=== PATIENT | female | born 1970 | race Caucasian/White ===

== ENCOUNTER 2018-02-22 10:17 | Emergency (ER) | payer OTHER ==
[~2018-02-22] VITALS: Ht 154.9 cm; Wt 63.5 kg
[~2018-02-22 10:17] MED LIST: CYCL10 PO; HYDACE5 PO; METPHE20 PO; PRED20 PO; TRAM50 PO
[2018-02-22] MEDS ORDERED: Zestril40 MG PO (10:35)
[2018-02-22 11:07] LABS: BASOPHILS ABSOLUTE AUTO 0.03 K/mm3 (0.00-0.23); BASOPHILS PERCENT AUTO 0 % (0-2); EOSINOPHILS ABSOLUTE AUTO 0.11 K/mm3 (0.00-0.68); EOSINOPHILS PERCENT AUTO 1 % (0-6); Hematocrit 44.4 % (33.0-51.0); Hemoglobin 15.2 g/dL (11.5-16.0); IMMATURE GRAN ABSOLUTE AUTO 0.04 K/mm3 (0.00-0.10); IMMATURE GRAN PERCENT AUTO 0 % (0-1); LYMPHOCYTES PERCENT AUTO 20 % (21-46); MONOCYTES ABSOLUTE AUTO 0.61 K/mm3 (0.16-1.47); MONOCYTES PERCENT AUTO 7 % (4-13); Mean Corpuscular HGB Conc 34.2 g/dL (31.5-36.5); Mean Corpuscular Volume 91 fL (80-100); Mean Platelet Volume 9.6 fL (9.1-12.4); NEUTROPHILS ABSOLUTE AUTO 6.62 K/mm3 (1.96-9.15); NEUTROPHILS PERCENT AUTO 72 % (41-73); Platelet Count 311 K/mm3 (150-400); RDW Coefficient Variation 12.3 % (11.7-14.2); RDW Standard Deviation 40.6 fL (35.1-46.3); White Blood Cell Count 9.21 K/mm3 (4.00-11.30)
[2018-02-22 11:22] LABS: Alanine Aminotransfer (ALT/SGP 28 U/L (12-78); Albumin, Blood 3.9 g/dL (3.4-5.0); Alk Phos 75 U/L (50-136); Anion Gap 8 mmol/L (6-16); Aspartate Aminotrans (AST/SGOT 25 U/L (12-37); Bilirubin, Total 0.5 mg/dL (0.1-1.0); Blood Urea Nitrogen 20 mg/dL (8-24); Bun/Creatinine Ratio 26.4 (12.0-20.0); CO2, Blood 22 mmol/L (21-32); Calcium, Blood 8.7 mg/dL (8.5-10.1); Chloride, Blood 108 mmol/L (98-108); Creatinine, Blood 0.76 mg/dL (0.40-1.00); Globulin, Blood 3.8 g/dL (2.2-4.0); Glomerular Filtration Rate >60 (60-); Glucose, Blood 101 mg/dL (70-99); Potassium, Blood 4.3 mmol/L (3.5-5.5); Sodium, Blood 138 mmol/L (136-145); Total Protein, Blood 7.7 g/dL (6.4-8.2)
[2018-02-22] MEDS ORDERED: PROM25 PO (12:09)
[2018-02-22] MEDS ORDERED: Bentyl20 MG PO (12:09)
== END 2018-02-22 12:45 | disposition home or self-care (01) ==
LOC: ER 10:17
PROVIDERS: Emergency Medicine
DX: R10.11 Right upper quadrant pain (principal); I10 Essential (primary) hypertension; F17.210 Nicotine dependence, cigarettes, uncomplicated; Z88.5 Allergy status to narcotic agent; Z79.899 Other long term (current) drug therapy
CPT/HCPCS: 36415; 76705; 80053; 81000; 81025; 83690; 85025; 96374; 99284; J2405; J7120

== ENCOUNTER 2019-11-06 20:22 | Emergency (ER) | payer OTHER ==
[~2019-11-06] VITALS: Ht 152.4 cm; Wt 62.6 kg
[~2019-11-06 20:22] MED LIST changes: +Bentyl20 MG PO; +PROM25 PO; +Zestril40 MG PO
[2019-11-06] MEDS ORDERED: ZYRTEC10 M2 PO (20:59)
[2019-11-06] MEDS ORDERED: HYDHCL25 (20:59)
[2019-11-06] MEDS ORDERED: Hydrochloroth12.5 MG PO (21:00)
[2019-11-06] MEDS ORDERED: CRUTCH2 XX (21:00)
== END 2019-11-06 21:09 | disposition home or self-care (01) ==
LOC: ER 20:22
DX: S83.412A Sprain of medial collateral ligament of left knee, initial encounter (principal); I10 Essential (primary) hypertension; F17.210 Nicotine dependence, cigarettes, uncomplicated; Z88.5 Allergy status to narcotic agent; Z79.899 Other long term (current) drug therapy; W17.89XA Other fall from one level to another, initial encounter
CPT/HCPCS: 29505; 99282-25; A9270

== ENCOUNTER 2021-09-16 01:02 | Emergency (ER) | payer OTHER ==
[~2021-09-16 01:02] MED LIST changes: +CRUTCH2 XX; +HYDHCL25; +Hydrochloroth12.5 MG PO; +MONT10T; +ZYRTEC10 M2 PO
== END 2021-09-16 02:15 | disposition left against medical advice (07) ==
LOC: ER 01:02
DX: Z53.21 Procedure and treatment not carried out due to patient leaving prior to being seen by health care provider (principal)

== ENCOUNTER 2022-11-28 10:28 | Day surgery (SDC) | payer OTHER ==
[~2022-11-28] VITALS: Ht 152.4 cm; Wt 60.1 kg
[2022-11-28] MEDS ORDERED: BENADRYL25 MG PO (11:02)
== END 2022-11-28 11:33 | disposition home or self-care (01) ==
LOC: ORSCSDS 10:28
DX: G56.02 Carpal tunnel syndrome, left upper limb (principal); Z53.9 Procedure and treatment not carried out, unspecified reason
CPT/HCPCS: J0690; J2250; J2704; J2795; J3010; J7120

== ENCOUNTER → 2024-03-21 | Outpatient (CLI) | payer OTHER ==
[~2024-03-21] MED LIST changes: +BENADRYL25 MG PO
[2024-03-21 15:19] LABS: Source, Urine Clean Catch
[2024-03-21 19:09] LABS: Appearance, Urine Clear (Clear); Bilirubin, Urine Neg (Neg); Blood, Urine Neg (Neg); Color, Urine Yellow (P-Yellow); Glucose Qualitative, Urine Neg (Neg); Ketones, Urine Neg (Neg); Leukocyte Esterase, Urine Neg (Neg); Nitrite, Urine Neg (Neg); Protein, Urine Neg (Neg); Urobilinogen, Urine NORM (Normal)
[2024-03-21 19:38] LABS: Creatinine, Urine Random 39.2 mg/dL (27.00-270.00); Protein, Urine Random 5.9 mg/dL (0.0-11.9); Protein/Creat Ratio, Ur Random 0.2
== END ==
LOC: LAB 15:16 → LAB SHORT 15:16
PROVIDERS: General Practice
DX: I10 Essential (primary) hypertension (principal)
CPT/HCPCS: 81003; 82570; 84156